=== PATIENT | female | born 1945 | race Caucasian/White ===

== ENCOUNTER 2020-02-08 14:13 | Outpatient (CLI) | payer MEDICARE, SELFPAY ==
--- NOTE | ~2020-02-08 | US_ITS ---
EXAMINATION: US venous doppler [facility] DATE: 02/08/2020 14:48 INDICATION: Left lower limb pain TECHNIQUE: Jimenez scale images without and with compression and Doppler images of the left lower extrem ity veins were obtained. COMPARISON: None. FINDINGS: The left common femoral vein, profunda femoral vein, femoral vein, popliteal vein, peroneal trunk, posterior tibial veins, and greater saphenous vein are patent. IMPRESSION: 1. Patent left lower extremity veins. No evidence of deep venous thrombosis. Reviewed, dictated and finalized at location A.
== END 2020-02-08 14:14 | disposition home or self-care (01) ==
LOC: ANHIMG 14:17
PROVIDERS: PCP Internal Medicine; Visit Provider Nurse Practitioner
DX: M79.662 Pain in left lower leg (principal)
CPT/HCPCS: 93971

== ENCOUNTER 2020-04-02 08:03 | Emergency (ER) | payer MEDICARE, SELFPAY ==
[2020-04-02 08:16] VITALS: BP 166/72; PULSE 92; RESP 16; TEMP 37; O2SAT 99
--- NOTE | 2020-04-02 08:18 | ED.BACK ---
HPI - Back Pain/Injury General Chief Complaint: Back Pain/Injury Stated Complaint: back pain Time Seen by Provider: 04/02/20 08:15 Source: patient Mode of arrival: ambulatory Limitations: no limitations History of Present Illness HPI Narrative: Kimberly Hogue is a 75 yo female with a PMH of HTN, hypothyroid, back pain, comes to express care with pain in her thoracic back. She denies any known injury rates pain at 11/10 with movement. Patient is interactive. Appears to move freely Related Data Allergies Allergy/AdvReac Type Severity Reaction Status Date / Time adhesive Allergy Unknown BLISTERS Verified 02/08/20 09:33 diclofenac Allergy Unknown patient Verified 02/08/20 09:33 states she cannot remember reaction famotidine Allergy Unknown patient Verified 02/08/20 09:33 states she cannot remember reaction ibuprofen Allergy Unknown patient Verified 02/08/20 09:33 reports she cannot remember Penicillins Allergy Unknown Hives Verified 02/08/20 09:33 Review of Systems Review of Systems: Narrative: CONSTITUTIONAL: Denies fever, chills, sweats. EYES: Denies visual changes, redness, discharge. ENT: Denies rhinorrhea, congestion, sore throat, otalgia. CARDIOVASCULAR: Denies chest pain, palpitations, edema. RESPIRATORY: Denies dyspnea, wheezing, cough GASTROINTESTINAL: Denies abdominal pain, nausea, vomiting, diarrhea. GENITOURINARY: Denies dysuria, hematuria, abnormal discharge SKIN: Denies rash or itching. NEUROLOGIC: Denies numbness, or focal weakness. PSYCHIATRIC: Denies anxiety or depression. Back pain mid scapula PMFSH Family History Family History Sibling Family history of coronary artery disease Mother Family history of congestive heart failure, Onset Age: 62 Father Acute myocardial infarction, Onset Age: 56 Other Diabetes mellitus Family history of arthritis Social History Social History Smoking status: Never smoker Alcohol intake: never Comments At time of signature, I agree with nursing past medical, surgical, social and family history. There is no relevant family history pertinent to the presenting complaint. Exam Narrative: Exam Narrative: GENERAL: This is a well-nourished, well-developed patient, in mild distress. HEAD: normocephalic, atraumatic. EYES: Sclera clear/white. Vision is grossly intact. EARS: External ears normal Hearing grossly intact. NOSE: External nose normal without nasal discharge, nares without redness, no rhinorrhea. THROAT: Mucous membranes moist, NECK: Neck supple, non-tender CARDIOVASCULAR: Regular rate and rhythm without murmurs, gallops, or rubs. RESPIRATORY: Clear to auscultation. Breath sounds equal bilaterally. No wheezes, rales, or rhonchi. GASTROINTESTINAL: Abdomen soft, SKIN: warm, intact with no suspicious lesions or rash, good texture and turgor. NEURO: awake, alert, and oriented to person, place and time. There were no obvious focal neurologic abnormalities. Steady gait EXTREMITIES: Normal range of motion. BACK: Thoracic R tender without deformity able to raise arms over head (limited on R to prior surgery), pain with posterior movement, lifting arms forward. No weakness Course Course Emergency Course: Appera sto be rhomboid muscle strain - started on baclofen and small amount tramadol. Discussed flexibility and exercises- follow up with pcp Vital Signs Vital signs: Vital Signs Temperature 98.6 F 04/02/20 08:16 Pulse Rate 92 04/02/20 08:16 Respiratory Rate 16 04/02/20 08:16 Blood Pressure 166/72 H 04/02/20 08:16 Pulse Oximetry 99 04/02/20 08:16 Temperature 98.6 F 04/02/20 08:16 Pulse Rate 92 04/02/20 08:16 Respiratory Rate 16 04/02/20 08:16 Blood Pressure 166/72 H 04/02/20 08:16 Pulse Oximetry 99 04/02/20 08:16 MDM - Back Pain/Injury Differ
== END 2020-04-02 08:42 | disposition home or self-care (01) ==
PROVIDERS: Emergency Provider Nurse Practitioner; PCP Internal Medicine
DX: S29.012A Strain of muscle and tendon of back wall of thorax, initial encounter (principal); I10 Essential (primary) hypertension; E03.9 Hypothyroidism, unspecified; X58.XXXA Exposure to other specified factors, initial encounter
CPT/HCPCS: 99213; G0463

== ENCOUNTER 2022-04-13 08:04 | Emergency (ER) | payer MEDICARE, SELFPAY ==
[2022-04-13 08:16] VITALS: BP 144/56; PULSE 95; RESP 16; TEMP 37.2; O2SAT 98
--- NOTE | 2022-04-13 08:19 | ED.SKABFB ---
HPI - Skin/Abscess/Foreign Bdy General Chief complaint: Skin/Abscess/Foreign Body Stated complaint: Rash Time Seen by Provider: 04/13/22 08:19 Source: patient Mode of arrival: ambulatory Limitations: no limitations History of Present Illness HPI narrative: 77-year-old female presents with complaint of itchy rash to face and left leg for 3 days. Has not used any [id number] medications to treat her symptoms. States that rash is not painful. Reminds her of poison oliva rash that she has had in the past but unsure if she came in contact with any poison oliva. States she was working in her front yard a few days ago. No other complaints today. All systems reviewed and negative except as noted above. Related Data Home Medications Medication Instructions Recorded Confirmed ascorbate calcium (vitamin C) 500 500 mg PO DAILY 12/21/21 04/13/22 mg tablet cholecalciferol (vitamin D3) 125 125 mcg PO DAILY 12/21/21 04/13/22 mcg (5,000 unit) capsule krill oil 500 mg capsule 500 mg PO DAILY 12/21/21 04/13/22 magnesium 30 mg tablet 30 mg PO DAILY 12/21/21 04/13/22 zinc acetate 50 mg (zinc) capsule 50 mg PO DAILY 12/21/21 04/13/22 (Galzin) Allergies Allergy/AdvReac Type Severity Reaction Status Date / Time adhesive Allergy Unknown BLISTERS Verified 12/21/21 09:11 diclofenac Allergy Unknown patient Verified 12/21/21 09:11 states she cannot remember reaction famotidine Allergy Unknown patient Verified 12/21/21 09:11 states she cannot remember reaction ibuprofen Allergy Unknown patient Verified 12/21/21 09:11 reports she cannot remember Penicillins Allergy Unknown Hives Verified 12/21/21 09:11 valacyclovir AdvReac Intermediate Urinary Verified 12/21/21 09:11 frequency and dysuria Review of Systems Review of Systems: CONSTITUTIONAL: Denies fever, chills, or sweats. EYES: Denies visual changes, redness, or discharge. ENT: Denies rhinorrhea, congestion, sore throat, or otalgia. CARDIOVASCULAR: Denies chest pain, palpitations, or edema. RESPIRATORY: Denies cough or dyspnea. GASTROINTESTINAL: Denies abdominal pain, nausea, vomiting, or diarrhea. GENITOURINARY: Denies dysuria or hematuria. SKIN: Reports itchy rash. MUSCULOSKELETAL: Denies back pain, joint pain, or myalgia. NEUROLOGIC: Denies headache, numbness, or weakness. PSYCHIATRIC: Denies anxiety or depression. All other systems reviewed are negative, except as documented in HPI. [facility] Past Medical History Medical History (Updated 04/13/22 @ 08:27 by Debbie Martin NP) COVID-19 Herpes zoster without complication Hyperlipidemia LDL goal <130 Hypothyroidism, unspecified Prediabetes Vitamin D deficiency, unspecified Family History Family History Sibling Family history of coronary artery disease Mother Family history of congestive heart failure, Onset Age: 62 Father Acute myocardial infarction, Onset Age: 56 Other Diabetes mellitus Family history of arthritis Social History Social History Smoking status: Never smoker Alcohol intake: never Substance use: never Substance use type: does not use Comments At time of signature, agree with nursing past medical, surgical, social and family history. There is no relevant family history pertinent to the presenting complaint. Exam Narrative: GENERAL: This is a well-nourished, well-developed patient, in no apparent distress. HEAD: normocephalic, atraumatic. EYES: PERRL. Sclera clear/white. Vision is grossly intact. EARS: External ears normal NOSE: External nose normal NECK: Neck supple, non-tender without lymphadenopathy, masses or thyromegaly. CARDIOVASCULAR: Regular rate and rhythm without murmurs, gallops, or rubs. RESPIRATORY: Clear to auscultation. Breath sounds equal bilaterally. No wheezes, rales, or rhonchi. SK
== END 2022-04-13 08:32 | disposition home or self-care (01) ==
PROVIDERS: Emergency Provider Nurse Practitioner Family; PCP Internal Medicine
DX: L23.7 Allergic contact dermatitis due to plants, except food (principal); E78.5 Hyperlipidemia, unspecified; E03.9 Hypothyroidism, unspecified; R73.03 Prediabetes; E55.9 Vitamin D deficiency, unspecified; Z86.16 Personal history of COVID-19
CPT/HCPCS: 99213; G0463

== ENCOUNTER 2024-03-24 12:09 | Outpatient (CLI) | payer MEDICARE, SELFPAY ==
--- NOTE | ~2024-03-24 | DEXA_ITS ---
Bone Density Report Name: ELIZABETH CONKLIN Age: 79 Sex: Female Ethnicity: White Date of : 1945 Indication: postmenopausal; screening for osteoporosis; hysterectomy; Referring Provider: TELLY MUELLER Study: Bone densitometry was performed. Exam Date: March 24, 2024 Accession number: [id number] Bone Density: Region BMD T-score Z-score Classification AP Spine(L1-L4) 1.147 0.9 3.5 Normal Femoral Neck (Left) 0.756 -0.8 1.4 Normal Total Hip (Left) 1.011 0.6 2.5 Normal Femoral Neck (Right) 0.783 -0.6 1.6 Normal Total Hip (Right) 0.978 0.3 2.2 Normal Total Hip Mean 0.995 0.5 2.4 Normal World Health Organization criteria for BMD impression classify patients as: Normal (T-score at or above -1.0), Osteopenia (T-score between -1.0 and -2.5), or Osteoporosis (T-score at or below -2.5). 10-year Fracture Risk: FRAX not reported because: All T-scores for Spine Total, Hip Total, Femoral Neck at or above -1.0 Clinical Information Provided by Patient: Has used the following medications: Vitamin D, Calcium Has the following medical conditions: Hysterectomy Patient maximum height was 63 Menopause Age: 36 No regular weight bearing exercise Onset of menses at age 15 Number of children 3 Impression: The patient has normal bone mass. Discussion: BONE DENSITY IS ABOVE THE MINIMUM DESIRABLE LEVEL AT ALL SKELETAL SITES TESTED. This patient?s bone mineral density is above the minimum desirable level (T-score -1.0 or better) at all sites measured. The patient should follow a healthful lifestyle (good nutrition with adequate calcium and vitamin D, and appropriate weight-bearing exercise). Follow-Up: Consider repeating this study in 5 years or sooner if there is some new clinical indication. Reported by: RUBEN on 03/24/2024 12:46:00 PM. Reviewed, dictated and finalized at location AAnupama DILLON
== END 2024-03-24 12:10 | disposition home or self-care (01) ==
LOC: ANHIMG 12:11
PROVIDERS: PCP Nurse Practitioner; Visit Provider Nurse Practitioner
DX: Z13.820 Encounter for screening for osteoporosis (principal); Z78.0 Asymptomatic menopausal state
CPT/HCPCS: 77080

== ENCOUNTER 2024-07-21 02:02 | Emergency (ER) | payer MEDICARE, SELFPAY ==
--- NOTE | ~2024-07-21 | CT_ITS ---
CT pelvis wo con Ordering provider: Tre Shaw MD History: . Eval pelvis fx . Comparison: None. Technique: CT pelvis without oral and IV contrast. . Automated exposure control and iterative recons truction technique were employed. The dose-length product was 229.31 mGy-cm. Findings: BONES: No pelvic fracture or hip dislocation. Age appropriate degenerative changes of the visualized lower lumbar spine. The hip and sacroiliac joint spaces are well maintained. Bilateral sacroiliacs. Pubic symphysitis. SUPERFICIAL SOFT TISSUES: Normal. PELVIC ORGANS: The bladder is underfilled.. VISUALIZED BOWEL AND MESENTERY: Normal. No free air or free fluid. No lymphadenopathy. RETROPERITONEUM: Mild atheromatous disease. IMPRESSION: No evidence of fractures seen in the pelvic bones. Reviewed, dictated and finalized at location A.
--- NOTE | ~2024-07-21 | CT_ITS ---
Non-contrast Head CT History: Head injury Technique: Axial non-contrast imaging of the brain was performed. Dose reduction technique was used on this scan by utilizing automated exposure control and iterative reconstruction technique. The dose -length product (DLP) was 605.33 mGy-cm. Findings: There is no evidence of intracranial hemorrhage, mass lesion, or acute infarct. Brain par enchyma appears normal. The ventricles and subarachnoid spaces are normal in size. The calvarium ap pears normal. The visualized paranasal sinuses and mastoid air cells are clear. Impression: No significant abnormality seen. Reviewed, dictated and finalized at location . Impression: No significant abnormality seen.
--- NOTE | ~2024-07-21 | XR_ITS ---
Portable chest x-ray Comparison: 03/08/2015 Clinical History: Syncope Findings: Lungs are clear, without focal consolidation or pleural effusion. Cardiomediastinal silho uette is stable. Bones and soft tissues are unremarkable. Impression: Normal chest. Reviewed, dictated and finalized at location . Impression: Normal chest.
--- NOTE | ~2024-07-21 | XR_ITS ---
EXAMINATION: XR hip LT 2V w AP pelvis DATE: 07/21/2024 03:55 INDICATION: Left hip pain post fall TECHNIQUE: Anteroposterior view of the pelvis and anteroposterior and frog-leg lateral views of the l eft hip were obtained. COMPARISON: None. FINDINGS: Bone alignment is normal. There is a subtle linear lucency projecting across the trabecular pattern o f the left femoral neck and both of the frontal projection without evident disruption of the cortex e quivocal for nondisplaced fracture. There is also subtle sclerosis at the medial side of the left fem oral neck with minimal overlying periosteal reaction suggesting insufficiency fracture. No other lesi ons suspicious for fracture identified. 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 Moderate to severe lower lumbar facet osteoarthritis. IMPRESSION: 1. Subtle linear lucency projecting across the left femoral neck with focal sclerosis and minimal per iosteal reaction along the medial cortex raising concern for insufficiency fracture potentially with acute progression. Consider further evaluation with either CT or MRI. Reviewed, dictated and finalized at location A. IMPRESSION: 1. Subtle linear lucency projecting across the left femoral neck with focal scl erosis and minimal periosteal reaction along the medial cortex raising concern for insufficiency fracture potentially with acute progression. Consider further evaluation with either CT or MRI.
--- NOTE | ~2024-07-21 | CT_ITS ---
CT Facial Bones and Cervical Spine Clinical Indication: Injury Technique: Contiguous axial scans were obtained through the facial bones and cervical spine followed by coronal and sagittal reconstructions. Dose reduction technique was used on this scan by utilizing automated exposure control and iterative reconstruction technique. The dose-length product (DLP) was 297.59 mGy-cm. Findings: CT facial bones: No fractures are identified. The visualized paranasal sinuses are clear. Intraorbita l soft tissues appear normal. CT cervical spine: No fractures or subluxation. There is moderate degenerative disc narrowing at C4- C5. There are mild degenerative changes in the remainder of the cervical spine. There is extensive fa cet arthropathy throughout cervical spine. There is bilateral neural foraminal narrowing at C3-C4. Th ere is mild left neural foraminal narrowing at C4-C5. There is mild bilateral neural foraminal narrow ing at C5-C6. There is bilateral neural foraminal narrowing at C6-C7. No prevertebral soft tissue swe lling. Impression: No fracture is seen in the facial bones. No fracture or subluxation of the cervical spine. Reviewed, dictated and finalized at [facility]. Impression: No fracture is seen in the facial bones. No fracture or subluxation of the cervical spine.
--- NOTE | ~2024-07-21 | XR_ITS ---
EXAMINATION: XR elbow RT min 3V DATE: 07/21/2024 03:55 INDICATION: Right elbow swelling post fall TECHNIQUE: Anteroposterior, two oblique and lateral views of the right elbow were obtained. COMPARISON: None. FINDINGS: Alignment is normal. No fracture or joint effusion. Mild osteoarthritis at the right elbow. Periphera l IV at the antecubital fossa. There is soft tissue swelling primarily along the posterolateral aspec t of the elbow. IMPRESSION: 1. Mild osteoarthritis at the right elbow. No acute osseous abnormality. Reviewed, dictated and finalized at location A.
--- NOTE | ~2024-07-21 | CT_ITS ---
Noncontrast CT scan of the right elbow CLINICAL HISTORY: Trauma, swelling TECHNIQUE: Axial noncontrast imaging of the right elbow was performed. Sagittal and coronal reformatt ed images were constructed. Dose reduction technique was used on this scan by utilizing automated exp osure control and iterative reconstruction technique. The dose-length product (DLP) was 365.01 mGy-cm . Findings: No fracture or dislocation seen. Joint spaces the lower preserved. Osseous alignment is polo tomic. No joint effusion evident. There is an irregular hematoma measuring 3.7 x 1.8 x 2.7 cm at the radial aspect of the elbow within the subcutaneous soft tissues. IMPRESSION: 3.7 x 1.8 x 2.7 cm hematoma at the subcutaneous soft tissues at the radial aspect of the elbow. No fracture or dislocation. Reviewed, dictated and finalized at [facility]. IMPRESSION: 3.7 x 1.8 x 2.7 cm hematoma at the subcutaneous soft tissues at the radial aspe ct of the elbow. No fracture or dislocation.
[2024-07-21 02:04] VITALS: BP 138/61; PULSE 66; RESP 14; TEMP 36.5; O2SAT 100
--- NOTE | 2024-07-21 02:09 | ECG_ITS ---
Test Date: 2024-07-21 02:11:34 Measurements Intervals Douglas Rate: 61 P: 46 IL: 219 QRS: 66 QRSD: 82 T: 72 QT: 413 QTc: 418 Interpretive Statements SINUS RHYTHM WITH FIRST DEGREE AV BLOCK WITH OCCASIONAL VENTRICULAR PREMATURE COMPLEXES ABNORMAL ECG No previous ECG available for comparison Electronically Signed On 07-21-2024 13:52:17 CDT by Doug Majano M.D.
[2024-07-21 02:20] LABS: Basophils Percent Auto 0.5 % (0.2-1.2); Eosinophils Absolute Auto 0.2 K/mm3 (0-0.3); Hemoglobin 12.8 g/dL (12.0-15.0); Immature Granulocyte Absolute 0.01 K/mm3 (0.00-0.031); Immature Granulocyte Percent A 0.2 % (0-0.5); Lymphocytes Absolute Auto 2.57 K/mm3 (0.9-3.2); Lymphocytes Percent Auto 40.5 % (18.3-44.2); Mean Corpuscular HGB Conc 32.8 g/dl (32-36); Mean Corpuscular Hemoglobin 30.9 pg (26-34); Mean Corpuscular Volume 94.2 fl (80-100); Mean Platelet Volume 9.1 fl (7.4-10.4); Monocytes Absolute Auto 0.6 K/mm3 (0.1-0.6); Neutrophils Percent Auto 46.8 % (45.5-73.1); Platelet Count Result 234 k/mm3 (150-375); Red Blood Count 4.14 M/mm3 (4.2-5.4); Red Cell Distribution Width 14.4 % (11.5-14.5); White Blood Count 6.3 K/mm3 (4.5-10.0)
[2024-07-21 02:59] LABS: Basophils Percent Auto 0.7 % (0.2-1.2); Eosinophils Absolute Auto 0.2 K/mm3 (0-0.3); Eosinophils Percent Auto 3.3 % (0-4.4); Hematocrit 38.6 % (37.0-47.0); Hemoglobin 12.5 g/dL (12.0-15.0); Immature Granulocyte Absolute 0.03 K/mm3 (0.00-0.031); Immature Granulocyte Percent A 0.5 % (0-0.5); Lymphocytes Absolute Auto 1.96 K/mm3 (0.9-3.2); Lymphocytes Percent Auto 32.2 % (18.3-44.2); Mean Corpuscular HGB Conc 32.4 g/dl (32-36); Mean Corpuscular Hemoglobin 30.6 pg (26-34); Mean Corpuscular Volume 94.6 fl (80-100); Mean Platelet Volume 8.9 fl (7.4-10.4); Monocytes Absolute Auto 0.6 K/mm3 (0.1-0.6); Neutrophils Absolute Auto 3.3 K/mm3 (1.3-6.7); Neutrophils Percent Auto 54.3 % (45.5-73.1); Platelet Count Result 236 k/mm3 (150-375); Red Blood Count 4.08 M/mm3 (4.2-5.4); Red Cell Distribution Width 14.3 % (11.5-14.5); White Blood Count 6.1 K/mm3 (4.5-10.0)
[2024-07-21] MEDS: MORPHINE SULFATE (*CRX) 4 MG/ML INJ 2 MG IV PUSH (03:00)
[2024-07-21] MEDS: SODIUM CHLORIDE 0.9% IV 1,000 ML 999 ML IV CONT (03:00)
[2024-07-21 03:14] LABS: Prothrombin Time 13.8 Seconds (11.1-14.7)
[2024-07-21 03:15] LABS: Partial Thromboplastin Time 27.4 Seconds (22.3-36.8)
[2024-07-21 03:15] LABS: Lactic Acid Reflex 1.4 mmol/L (0.7-2.0)
[2024-07-21 03:17] LABS: Alanine Aminotransferase 31 U/L (6-35); Alkaline Phosphatase 56 U/L (38-126); Anion Gap 6 mmol/L (4-12); Aspartate Amino Transferase 33 U/L (14-36); Bilirubin,Total 0.3 mg/dL (0.2-1.3); Blood Urea Nitrogen 23 mg/dL (7-17); Carbon Dioxide 29 mmol/L (22-30); Chloride 102 mmol/L (98-107); Estimated CRCL calculation 45 ml/min; Estimated Glomerular Filt Rate > 60; Glucose 110 mg/dL (65-110); Magnesium 2.2 mg/dL (1.6-2.3); Potassium 4.1 mmol/L (3.4-5.0); Sodium 137 mmol/L (137-145)
[2024-07-21 03:29] LABS: Troponin I < 0.012 ng/mL (0.000-0.034)
--- NOTE | 2024-07-21 04:55 | ED.GENADULT ---
HPI - General Adult General Chief complaint: Fall <Yazan Masterson MD - Last Filed: 07/21/24 07:19> Stated complaint: SYNCOPAL EPISODE S/P FEELING DIZZY <Yazan Masterson MD - Last Filed: 07/21/24 07:19> Time Seen by Provider: 07/21/24 02:18 <Yazan Masterson MD - Last Filed: 07/21/24 07:19> History of Present Illness HPI narrative: The patient be neuro are presents emergency department with chief complaint of a syncope. The patient left port she got up to go the bathroom seeing Yolanda Ryder fell to the ground the patient was wedged between the toilet and the bathtub patient reports swelling and pain in her right elbow also reports that she has a headache the patient also reports that she has pain around her left orbit patient states she does not remember when on how she fell denies pain on anticoagulants <Yazan Mastreson MD - Last Filed: 07/21/24 07:19> Related Data Home medications: Home Medications Medication Instructions Recorded Confirmed ascorbate calcium (vitamin C) 500 500 mg PO DAILY 12/21/21 03/11/24 mg tablet krill oil 500 mg capsule 500 mg PO DAILY 12/21/21 03/11/24 magnesium 30 mg tablet 30 mg PO DAILY 12/21/21 03/11/24 zinc acetate 50 mg (zinc) capsule 50 mg PO DAILY 12/21/21 03/11/24 (Galzin) <Yazan Masterson MD - Last Filed: 07/21/24 07:19> Allergies/adverse reactions: Allergies Allergy/AdvReac Type Severity Reaction Status Date / Time adhesive Allergy Unknown BLISTERS Verified 03/11/24 07:05 diclofenac Allergy Unknown patient Verified 03/11/24 07:05 states she cannot remember reaction famotidine Allergy Unknown patient Verified 03/11/24 07:05 states she cannot remember reaction ibuprofen Allergy Unknown patient Verified 03/11/24 07:05 reports she cannot remember Penicillins Allergy Unknown Hives Verified 03/11/24 07:05 valacyclovir AdvReac Intermediate Urinary Verified 03/11/24 07:05 frequency and dysuria <Yazan Masterson MD - Last Filed: 07/21/24 07:19> Review of Systems Review of Systems: A 10 system review of systems was completed on the patient and is negative except for what is stated in the HPI. Nursing and ancillary documentation was reviewed. <Yazan Masterson MD - Last Filed: 07/21/24 07:19> PMFSH Past Medical History Medical History: Medical History COVID-19 Herpes zoster without complication Hyperlipidemia LDL goal <130 Hypothyroidism, unspecified Prediabetes Vitamin D deficiency, unspecified <Yazan Masterson MD - Last Filed: 07/21/24 07:19> Family History Family History: Family History Sibling Family history of coronary artery disease Mother Family history of congestive heart failure, Onset Age: 62 Father Acute myocardial infarction, Onset Age: 56 Other Diabetes mellitus Family history of arthritis <Yazan Masterson MD - Last Filed: 07/21/24 07:19> Social History Social History: Social History Smoking status: Never smoker Alcohol intake: never Substance use: never Substance use type: does not use Lack of Transportation: No Lack of Food: Never True Current Housing: I Have Housing Concerned About Future Housing: No Difficulty Paying Gas/Electric Bills: No Difficulty Paying for Meds: No Currently Unemployed: No Education: High School Diploma/GED Difficulty w/ Childcare or Family Care: No <Yazan Masterson MD - Last Filed: 07/21/24 07:19> Exam Narrative: GENERAL: Well-appearing, well-nourished, and in no acute distress. HEAD: Normocephalic, atraumatic. EYES: PERRLA and EOMI. ENT: Nares clear, no rhinorrhea or epistaxis. Mucous memb
[2024-07-21 07:31] VITALS: BP 121/62; PULSE 66; RESP 14; O2SAT 99
[2024-07-21 08:23] LABS: Add Urine Microscopic? YES; Appearance Urine Clear (Clear); Bacteria Urine None Seen /hpf; Bilirubin Urine Negative (Negative); Blood Urine Negative (Negative); Color Urine Yellow (Yellow); Glucose Urine UA Negative (Negative); Ketones Urine Negative (Negative); Leukocyte Esterase Ur 1+ LEU/UL (Negative); Need Manual Microscopic Reviewed; Nitrate Urine Negative (Negative); Non Pathogenic Casts 0-2; Protein Urine Negative (Negative); RBC Urine 0-2 /hpf (0-2); Squamous Epithelial Cell Urine None Seen /hpf (Few); WBC Urine 0-5 /hpf (0-3)
[2024-07-21 09:16] VITALS: BP 114/57; PULSE 62; RESP 14; O2SAT 99
[2024-07-21 10:01] VITALS: BP 130/63; PULSE 62; RESP 16; O2SAT 100
== END 2024-07-21 10:37 | disposition home or self-care (01) ==
PROVIDERS: Emergency Provider Emergency Medicine; PCP Nurse Practitioner
DX: R55 Syncope and collapse (principal); S50.01XA Contusion of right elbow, initial encounter; S05.12XA Contusion of eyeball and orbital tissues, left eye, initial encounter; E78.5 Hyperlipidemia, unspecified; E03.9 Hypothyroidism, unspecified; R73.03 Prediabetes; E55.9 Vitamin D deficiency, unspecified; Z86.16 Personal history of COVID-19; I49.3 Ventricular premature depolarization; I44.0 Atrioventricular block, first degree; M19.021 Primary osteoarthritis, right elbow; W18.39XA Other fall on same level, initial encounter
CPT/HCPCS: 36415; 70450; 70486; 71045; 72125; 72192; 73080; 73200; 73502; 80053; 81001; 83605; 83735; 84484; 85025; 85610; 85730; 87086; 87088; 93005; 96361; 96374; 99284; J2270; J7030

== ENCOUNTER 2024-11-18 08:18 | Outpatient (CLI) | payer MEDICARE, SELFPAY ==
--- NOTE | ~2024-11-18 | XR_ITS ---
XR shoulder LT min 2V 11/18/2024 08:36 Indication: Left shoulder pain Procedure: 4 views left shoulder Comparison: No prior studies for comparison. Findings: There is mild polyarticular osteoarthritis. There is anatomic alignment. No fracture or tra umatic malalignment. No soft tissue abnormality. No foreign bodies. Impression: 1: Mild polyarticular osteoarthritis of the left shoulder. Reviewed, dictated and finalized at location A. [facility] Impression: 1: Mild polyarticular osteoarthritis of the left shoulder.
--- OUTSIDE RECORDS SUMMARY | 2024-11-18 08:30 | XMS_ITS | Referral Summary ---
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 Gender Identity Not on file Sexual Orientation Not on file Plan of Treatment Not on file Procedures Procedure Name Priority Date/Time Associated Diagnosis Comments SCREENING MAMMOGRAM BILATERAL W RICK Schedule Routine, Read Routine (OP Routine) 04/15/2024 7:24 AM CDT Screening mammogram, encounter for DEXA AXIAL SKELETON BONE DENSITY 1 OR MORE SITES Schedule Routine, Read Routine (OP Routine) 03/20/2020 8:26 AM CDT Asymptomatic menopausal state from Last 3 Months or Most Recently Relevant to Health Maintenance Results * Screening Mammogram Bilateral W Rick (04/15/2024 7:24 AM CDT) Anatomical Region Laterality Modality Breast Bilateral Mammography Narrative 04/15/2024 11:53 AM CDT Mammogram Technique: Bilateral Digital Breast Tomosynthesis, Bilateral C-view 2D Screening mammogram. ??Views obtained: ??bilateral craniocaudal and bilateral mediolateral oblique. ??Computer Aided Detection was performed. Mammogram Findings: The present examination has been compared to prior imaging studies performed at [facility] on 12/11/2020, 01/07/2022 and 04/14/2023. There are scattered areas of fibroglandular density. There is no suspicious abnormality in either breast. Impression: There is no mammographic evidence of malignancy. Annual screening mammography is recommended. OVERALL FINAL ASSESSMENT: BI-RADS CATEGORY 1: ??Negative. Procedure Note Callie Irene MD - 04/15/2024 Mammogram Technique: Bilateral Digital Breast Tomosynthesis, Bilateral C-view 2D Screening mammogram. Views obtained: bilateral craniocaudal and bilateral mediolateral oblique. Computer Aided Detection was performed. Mammogram Findings: The present examination has been compared to prior imaging studies performed at [facility] on 12/11/2020, 01/07/2022 and 04/14/2023. There are scattered areas of fibroglandular density. There is no suspicious abnormality in either breast. Impression: There is no mammographic evidence of malignancy. Annual screening mammography is recommended. OVERALL FINAL ASSESSMENT: BI-RADS CATEGORY 1: Negative. us Self Screening Mammogram IMG MAMMO PROCEDURES Fi nal Result * Dexa Axial Skeleton Bone Density 1 or 2 Site (03/20/2020 8:26 AM CDT) Anatomical Region Laterality Modality Body N/A Digital Radiogra phy 03/20/2020 9:42 AM CDT Impressions 03/20/2020 10:08 AM CDT ?? 1. The bone mineral density of the lumbar spine is normal. ?? 2. The bone mineral density of the left femoral neck is normal. ?? 3. The bone mineral density of the left total hip is normal. ?? 4. Overall, the above findings are normal by WHO criteria. 5. Calculation of fracture risk using the FRAX model is not appropriate in certain settings. ??It was not performed in this patient because the patient met the following condition(s): ??normal bone density. General comments regarding interpretation of bone density measurements: ? A) ??In children, premenopausal woman and males under age 50 not at increased risk for fractures only Z-scores, not T-scores are used to indicate risk. ??A Z-score above -2.0 is defined as within the expected range for age and Z-score at or less than -2.0 is below the expected range for age . ??A Z-score below the expected range for age in a patient with recent fractures and/or chronic corticosteroid treatment is consistent with a diagnosis of osteoporosis. ? B) ??In post menopausal women and males over 50, comparison of the measured bone mineral density with the average value in young normal subjects (the T-score ) has been found to be useful in assessing fracture risk. ??Fracture risk approximately doubles for each 1.0 standard deviation (SD) in individual's hip or spine bone mineral density is below the average value of young normal subjects. ??The World Health Organization (WHO) has defined T-scores of -1.0 to -2.5 as diagnostic of low bone mass (OSTEOPENIA), and T-scores of -2.5 or lower to be diagnostic of OSTEOPOROSIS, based on the site of lowest bone density. ? Note that there will be a change in reporting format and reference databases as patients move from the younger population (group A) to the older population (group B) The National Osteoporosis Foundation (www.nof.org) recommends adequate intake of calcium and vitamin D and regular weight-bearing exercise in all patients. ??They recommend pharmacologic treatment in postmenopausal women and men age 50 and older presenting with any of the following: ? 1) ? Osteoporosis, after appropriate evaluation to exclude secondary causes. ? 2) ? A hip or vertebral (clinical or radiographic) fracture, regardless of the bone density. ? 3) ? Low bone mass (Osteopenia) and one or more of: other prior fractures, secondary causes associated with high risk of fracture (such as glucocorticoid use or total immobilization), or computed high risk of fracture (10-yr probability of hip fracture >= 3% or a 10-yr probability of any major osteoporosis-related fracture >= 20% based on the [place].-adapted WHO algorithm), available at http://www.shef.ac.uk/FRAX). Dictated by: Griffin Benitez M.D. The radiology attending physician has personally reviewed this study, and had reviewed and/or edited this written report and agrees with it. Electronically signed by: Allen Velázquez M.D. Narrative 03/20/2020 10:08 AM CDT BONE DENSITOMETRY OF THE SPINE AND HIP ?? DATE OF STUDY: ??03/20/2020 ?? HISTORY: ??75-year-old postmenopausal woman with early menopause and osteoarthritis. ??She is not currently being treated with any bone modifying medications. ??Evaluate bone mineral density. ?? Additional risk factors for fracture: Prior finger fracture. ?? FINDINGS (SPINE): The bone mineral density of L1-L4 was assessed by dual-energy x-ray absorptiometry. The average bone mineral density within this region is 1.094 gm/sq-cm. This is 2.8 standard deviations above the mean of the average bone mineral density for age- and gender-matched subjects (the Z-score). It is 0.4 standard deviations above the mean peak bone mineral density in young adults (the T-score). ?? FINDINGS (FEMORAL NECK): The bone mineral density of the left femoral neck was assessed by dual-energy x-ray absorptiometry. The average bone mineral density within the femoral neck region is 0.785 gm/sq-cm. This is 1.5 standard deviations above the mean of the average bone mineral density for age- and gender-matched subjects (the Z-score). It is 0.6 standard deviations below the mean peak bone mineral density in young adults (the T-score). ?? FINDINGS (TOTAL HIP): The bone mineral density of the left hip was assessed by dual-energy x-ray absorptiometry. The average bone mineral density within the total hip region is 0.962 gm/sq-cm. This is 1.9 standard deviations above the mean of the average bone mineral density for age- and gender-matched subjects (the Z-score). It is 0.2 standard deviations above the mean peak bone mineral density in young adults (the T-score). ?? SUMMARY OF CURRENT RESULTS: Region ? BMD ?T-score ??Z-score ?? AP Spine (L1-L4) ? 1.094 ?0.4 ?2.8 ? Femoral Neck (Left) ?0.785 ?? -0.6 ?1.5 ? Total Hip (Left) ? 0.962 ?0.2 ?1.9 ? Procedure Note Allen Velázquez MD - 03/20/2020 BONE DENSITOMETRY OF THE SPINE AND HIP DATE OF STUDY: 03/20/2020 HISTORY: 75-year-old postmenopausal woman with early menopause and osteoarthritis. She is not currently being treated with any bone modifying medications. Evaluate bone mineral density. Additional risk factors for fracture: Prior finger fracture. FINDINGS (SPINE): The bone mineral density of L1-L4 was assessed by dual-energy x-ray absorptiometry. The average bone mineral density within this region is 1.094 gm/sq-cm. This is 2.8 standard deviations above the mean of the average bone mineral density for age- and gender-matched subjects (the Z-score). It is 0.4 standard deviations above the mean peak bone mineral density in young adults (the T-score). FINDINGS (FEMORAL NECK): The bone mineral density of the left femoral neck was assessed by dual-energy x-ray absorptiometry. The average bone mineral density within the femoral neck region is 0.785 gm/sq-cm. This is 1.5 standard deviations above the mean of the average bone mineral density for age- and gender-matched subjects (the Z-score). It is 0.6 standard deviations below the mean peak bone mineral density in young adults (the T-score). FINDINGS (TOTAL HIP): The bone mineral density of the left hip was assessed by dual-energy x-ray absorptiometry. The average bone mineral density within the total hip region is 0.962 gm/sq-cm. This is 1.9 standard deviations above the mean of the average bone mineral density for age- and gender-matched subjects (the Z-score). It is 0.2 standard deviations above the mean peak bone mineral density in young adults (the T-score). SUMMARY OF CURRENT RESULTS: Region BMD T-score Z-score AP Spine (L1-L4) 1.094 0.4 2.8 Femoral Neck (Left) 0.785 -0.6 1.5 Total Hip (Left) 0.962 0.2 1.9 IMPRESSION: 1. The bone mineral density of the lumbar spine is normal. 2. The bone mineral density of the left femoral neck is normal. 3. The bone mineral density of the left total hip is normal. 4. Overall, the above findings are normal by WHO criteria. 5. Calculation of fracture risk using the FRAX model is not appropriate in certain settings. It was not performed in this patient because the patient met the following condition(s): normal bone density. General comments regarding interpretation of bone density measurements: A) In children, premenopausal woman and males under age 50 not at increased risk for fractures only Z-scores, not T-scores are used to indicate risk. A Z-score above -2.0 is defined as within the expected range for age and Z-score at or less than -2.0 is below the expected range for age . A Z-score below the expected range for age in a patient with recent fractures and/or chronic corticosteroid treatment is consistent with a diagnosis of osteoporosis. B) In post menopausal women and males over 50, comparison of the measured bone mineral density with the average value in young normal subjects (the T-score ) has been found to be useful in assessing fracture risk. Fracture risk approximately doubles for each 1.0 standard deviation (SD) in individual's hip or spine bone mineral density is below the average value of young normal subjects. The World Health Organization (WHO) has defined T-scores of -1.0 to -2.5 as diagnostic of low bone mass (OSTEOPENIA), and T-scores of -2.5 or lower to be diagnostic of OSTEOPOROSIS, based on the site of lowest bone density. Note that there will be a change in reporting format and reference databases as patients move from the younger population (group A) to the older population (group B) The National Osteoporosis Foundation (www.nof.org) recommends adequate intake of calcium and vitamin D and regular weight-bearing exercise in all patients. They recommend pharmacologic treatment in postmenopausal women and men age 50 and older presenting with any of the followin) Osteoporosis, after appropriate evaluation to exclude secondary causes. 2) A hip or vertebral (clinical or radiographic) fracture, regardless of the bone density. 3) Low bone mass (Osteopenia) and one or more of: other prior fractures, secondary causes associated with high risk of fracture (such as glucocorticoid use or total immobilization), or computed high risk of fracture (10-yr probability of hip fracture >= 3% or a 10-yr probability of any major osteoporosis-related fracture >= 20% based on the [place].-adapted WHO algorithm), available at http://www.shef.ac.uk/FRAX). Dictated by: Griffin Benitez M.D. The radiology attending physician has personally reviewed this study, and had reviewed and/or edited this written report and agrees with it. Electronically signed by: Allen Velázquez M.D. Donna Lyons NP IMG DXA PROCEDURES Final R esult from Last 3 Months or Most Recently Relevant to Health Maintenance Insurance MEDICARE [facility] MEDICARE [facility] MEDICARE [facility] Care Teams Manager Appointment Relationship Specialty Start Date End Date Cesar Gonzalez MD [address] [id number] PCP - General Obstetrics and Gynecology 02/19/23
--- OUTSIDE RECORDS SUMMARY | 2024-11-18 08:30 | XMS_ITS | Clinical Summary ---
Author Organization [address] Address [facility] [place] [address] Care Team Providers Care Test Desk Supervisor Name Role Phone Cesar Gonzalez MD Primary Care Provider [phone] Family History Medical History Relation Name Comments Skin cancer Father Family history of skin cancer - (Added by TW Conv) Relation Name Status Comments Father Social History Tobacco Use Types Packs/Day Years Used Date Smoking Tobacco: Never Personal Safety Answer Date Recorded Getting School Help Needed Not on file 12/13 Comments Unknown Sex and Gender Information Value Date Recorded Sex Assigned at Not on file 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 Gender Identity Not on file Sexual Orientation Not on file Obstetrics History Plan of Treatment Health Maintenance Due Date Last Done Comments Depression Screening 1945 Fall Risk Assessment 1945 Hepatitis C Screening 1945 DTaP/Tdap/Td Vaccine (1 - Tdap) 1957 Hepatitis B Screening 02/02/1964 Pneumococcal vaccine 65+ (1 of 1 - PCV) 2011 Well Visit 65+ 2011 Zoster Vaccine (2 of 3) 09/23/2019 07/29/2019 Osteoporosis Screening-Bone Density Scan 03/20/2022 03/20/2020 Influenza Vaccine (#1) 2024 9, 06/16/2018, 06/24/2017, Additional history exists Breast Cancer Screening-Mammogram Discontinued 04/15/2024, 04/14/2023, 01/07/2022, Additional history exists Procedures Procedure Name Priority Date/Time Associated Diagnosis [...] compared to prior imaging studies performed at [facility] on 12/11/2020, 01/07/2022 and 04/14/2023. There [...] compared to prior imaging studies performed at [facility] on 12/11/2020, 01/07/2022 and 04/14/2023. There [...] signed by: Allen Velázquez M.D. Donna Lyons HEARING THERAPY TEACHER IMG DXA PROCEDURES Final R esult from Last 3 Months or Most Recently Relevant to Health Maintenance Insurance MEDICARE [facility] MEDICARE [facility] MEDICARE [facility] Care Teams Test Desk Supervisor Relationship Specialty Start Date End Date Cesar Gonzalez MD [address] [facility] [address] [id number] PCP - General Obstetrics and Gynecology 02/19/23
== END 2024-11-18 08:19 | disposition home or self-care (01) ==
PROVIDERS: PCP Nurse Practitioner; Visit Provider Nurse Practitioner
DX: M19.012 Primary osteoarthritis, left shoulder (principal)
CPT/HCPCS: 73030

== ENCOUNTER 2024-12-21 07:51 | Outpatient (CLI) | payer MEDICARE, SELFPAY | END 2024-12-21 07:52 | disposition home or self-care (01) | LOC: MICIMG 07:52 | PROVIDERS: PCP Nurse Practitioner Family; Visit Provider Nurse Practitioner Family | DX: M19.012 Primary osteoarthritis, left shoulder (principal); M75.52 Bursitis of left shoulder | CPT/HCPCS: 73221 ==